=== PATIENT | male | born 1970 | race Caucasian/White ===

== ENCOUNTER 2022-08-09 11:19 | Emergency (ER) | payer OTHER ==
[~2022-08-09] VITALS: Ht 172.7 cm; Wt 83.9 kg
[2022-08-09] MEDS ORDERED: IBUP800 PO (11:54)
[2022-08-09] MEDS ORDERED: Prednisone20 MG PO (11:54)
== END 2022-08-09 12:06 | disposition home or self-care (01) ==
LOC: ER 11:19
DX: M10.9 Gout, unspecified (principal); Z79.52 Long term (current) use of systemic steroids
CPT/HCPCS: 99282

== ENCOUNTER 2023-01-03 09:05 | Emergency (ER) | payer OTHER ==
[~2023-01-03] VITALS: Ht 172.7 cm; Wt 88.5 kg
[~2023-01-03 09:05] MED LIST: IBUP800 PO; Prednisone20 MG PO
[2023-01-03 09:47] VITALS: BP 139/94
[2023-01-03] MEDS ORDERED: IBUP800 PO (09:52)
[2023-01-03] MEDS ORDERED: Prednisone20 MG PO (09:52)
[2023-01-03] MEDS ORDERED: NEOPOLHCSU LEFTEAR (09:52)
== END 2023-01-03 09:53 | disposition home or self-care (01) ==
LOC: ER 09:05
DX: H60.92 Unspecified otitis externa, left ear (principal); M10.9 Gout, unspecified; Z79.52 Long term (current) use of systemic steroids
CPT/HCPCS: 99282